=== PATIENT | male | born 1960 | race Caucasian/White ===

== ENCOUNTER 2017-05-01 20:03 | Emergency (ER) | payer OTHER ==
[2017-05-01 20:43] VITALS: BP 156/98
[2017-05-01] MEDS ORDERED: Al Hydrox/Mg Hydrox/Simet LIQ* 30 ML UDC PO ONE (21:49)
--- NOTE | 2017-05-01 22:13 | UC ---
Donis Weir Julia, scribed for Steven Soto MD on 05/01/17 at 2117 . Abdominal Pain Male HPI - HPI Summary HPI Summary: This patient is a 57 year old M presenting to [facility] with a chief complaint of constant gas and epigastric abdominal pain since 21:30 after shoveling snow. Patient reports elevated BP at home (195/100). Patient denies nausea and diaphoresis. The patient rates the pain 4/10 in severity currently, and a 7/10 initially. Symptoms aggravated by nothing. Symptoms alleviated by nothing. Pt has hx of HTN. He takes a baby ASA daily, and took additional ASA today, which usually bothers his stomach. - History of Current Complaint Chief Complaint: UCAbdominalPain Stated Complaint: ABDOMINAL GAS Time Seen by Provider: 05/01/17 21:03 Hx Obtained From: Patient Onset/Duration: Lasting Hours, Still Present Timing: Constant Severity Initially: Moderate Severity Currently: Mild Pain Intensity: 5 Pain Scale Used: 0-10 Numeric Location: Epigastric Character: Colicy Aggravating Factor(s): Nothing Alleviating Factor(s): Nothing Associated Signs And Symptoms: Positive: Other - elevated BP - Allergies/Home Medications Allergies/Adverse Reactions: Allergies Allergy/AdvReac Type Severity Reaction Status Date / Time No Known Allergies Allergy Verified 05/01/17 20:43 PMH/Surg Hx/FS Hx/Imm Hx Cardiovascular History: Hypertension - Surgical History Surgical History: None - Family History Known Family History: Positive: Cardiac Disease - father, Other - lung cancer - father - Social History Alcohol Use: Occasionally Substance Use Type: None Smoking Status (MU): Never Smoked Tobacco - Immunization History Most Recent Tetanus Shot: 2012 Review of Systems Skin: Negative - diaphoresis Cardiovascular: Other - elevated BP Gastrointestinal: Negative - nausea, Abdominal Pain - epigastric All Other Systems Reviewed And Are Negative: Yes Physical Exam Triage Information Reviewed: Yes Vital Signs: Initial Vital Signs Temp 97.3 F 05/01/17 20:39 Pulse 67 05/01/17 20:39 Resp 18 05/01/17 20:39 BP 156/98 05/01/17 20:39 Pulse Ox 99 05/01/17 20:39 Vital Signs Reviewed: Yes - Additional Comments General: well-appearing, no pain distress Skin: warm, color reflects adequate perfusion, dry Head: normal Eyes: EOMI, EDELMIRA ENT: normal Neck: supple, nontender Respiratory: CTA, breath sounds present Cardiovascular: RRR Abdomen: soft, Minimal tenderness is epigastrium Bowel: present Musculoskeletal: normal, strength/ROM intact Neurological: normal, sensory/motor intact, A&O x3 Psychological: affect/mood appropriate Diagnostics - EKG Cardiac Rate: NL - 64 BPM Cardiac Rhythm: Sinus: Normal Ectopy: None ST Segment: Non-Specific - minimal ST elevation in anterior leads, flipped T in lead III Abd Pain Male Course/Dx - Course Course Of Treatment: BP noted and advised to follow up with PCP. EKG HAS CONCAVE UP STs IN THE ANTERIOR LEADS WITH MINIMAL ST ELEVATION AND A FLIPPED T IN III. THE FLIPPED T WAS NOT THERE IN HIS 05/24/12 EKG AND THE STs IN THE 05/24/12 EKG WERE READ NORMAL. I DISCUSSED TODAY'S EKG FINDINGS WITH THE PATIENT AND MY CONCERN OF THE POSSIBILITY OF THE EPIGASTRIC PAIN BEING CAUSED BY HIS HEART. I RECOMMENDED TRANSPORT TO THE EMERGENCY DEPARTMENT BY AMBULANCE. THE PATIENT DECLINED AMBULANCE TRANSPORT. HE STATED HE WOULD DRIVE TO THE EMERGENCY DEPARTMENT. NO MORE ASA WAS GIVEN HERE THE PATIENT HAD TAKEN ASA IN [employer]. THE PATIENT REQUESTED SOMETHING FOR GI UPSET AND WAS GIVEN MAALOX. I DISCUSSED THE PATIENT WITH THE CHARGE NURSE IN THE ED TO FACILITATE THE PATIENT'S EPIGASTRIC PAIN AND CARDIAC EVALUATION UPON ARRIVAL TO THE ED. - Differential Dx/Clinical Impression Provider Diagnoses: EPIGASTRIC PAIN Discharge - Discharge Plan Condition: Stable Disposition: HOME Patient Education Materials: Epigastric Pain (ED) Referrals: Abilio Carrillo MD [Primary Care Provider] - Additional Instructions: GO DIRECTLY TO THE EMERGENCY DEPARTMENT FOR FURTHER EVALUATION OF YOUR UPPER ABDOMINAL PAIN THIS COULD BE YOUR HEART CAUSING YOUR PAIN. The documentation as recorded by the Donis ruiz Julia accurately reflects the service I personally performed and the decisions made by me, Steven Soto MD.
== END 2017-05-01 21:50 | disposition home or self-care (01) ==
LOC: UCEAST 20:03
DX: R10.13 Epigastric pain (principal); R61 Generalized hyperhidrosis; I10 Essential (primary) hypertension; Z79.82 Long term (current) use of aspirin
CPT/HCPCS: 93005; 99212; A9270-GY; G0463

== ENCOUNTER 2017-05-01 22:09 | Emergency (ER) | payer OTHER ==
--- NOTE | 2017-05-02 00:10 | UC ---
Abdominal Pain Male HPI - HPI Summary HPI Summary: wasworking out side this evening and had some "epigastric gas" pain waited an hour to see if it would go away, when pain failed to resolve he went to the urgent care-at urgent care pat states pain continued EKG was done that showed minimal st seg elevation in V1-V4 patient refused an ambulance and drove to [facility] Ed for a comprehensive assessment. Pain is currently pain free with out medicalintervention EKG is normal with out ST Seg changes - History of Current Complaint Chief Complaint: EDAbdPain Stated Complaint: ABD PAIN Time Seen by Provider: 05/02/17 00:15 Hx Obtained From: Patient Onset/Duration: Sudden Onset, Lasting Hours, Resolved Timing: Constant Severity Initially: Mild Severity Currently: None Pain Intensity: 0 Pain Scale Used: 0-10 Numeric Location: Epigastric Radiates: No Character: Other - full Aggravating Factor(s): Nothing Alleviating Factor(s): Spontaneous Resolution Associated Signs And Symptoms: Positive: Negative - Allergies/Home Medications Allergies/Adverse Reactions: Allergies Allergy/AdvReac Type Severity Reaction Status Date / Time No Known Allergies Allergy Verified 05/01/17 20:43 PMH/Surg Hx/FS Hx/Imm Hx Previously Healthy: Yes - itp - Surgical History Surgical History: None - Family History Known Family History: Positive: Other - father [place] in his 70'2 from lung cancer - Social History Occupation: Employed Full-time Lives: Alone Alcohol Use: Occasionally Substance Use Type: None Smoking Status (MU): Never Smoked Tobacco - Immunization History Most Recent Tetanus Shot: 2012 Review of Systems Constitutional: Negative Skin: Negative Eyes: Negative ENT: Negative Respiratory: Negative Cardiovascular: Negative Gastrointestinal: Negative Genitourinary: Negative Motor: Negative Neurovascular: Negative Musculoskeletal: Negative Neurological: Negative Psychological: Negative Is Patient Immunocompromised?: No All Other Systems Reviewed And Are Negative: Yes Physical Exam Triage Information Reviewed: Yes Appearance: Well-Appearing, No Pain Distress, Well-Nourished Vital Signs: Initial Vital Signs Temp 97.6 F 05/01/17 22:58 Pulse 87 05/01/17 22:58 Resp 18 05/01/17 22:58 BP 167/95 05/01/17 22:58 Pulse Ox 100 05/01/17 22:58 Vital Signs Reviewed: Yes Eye Exam: Normal Eyes: Positive: Conjunctiva Clear ENT Exam: Normal ENT: Positive: Normal ENT inspection, Hearing grossly normal, Pharynx normal, TMs normal, Uvula midline. Negative: Nasal congestion, Nasal drainage, Tonsillar swelling, Trismus, Muffled voice, Hoarse voice, Dental tenderness, Sinus tenderness Dental Exam: Normal Neck exam: Normal Neck: Positive: Supple, Nontender, No Lymphadenopathy Respiratory Exam: Normal Respiratory: Positive: Chest non-tender, Lungs clear, Normal breath sounds, No respiratory distress, No accessory muscle use Cardiovascular Exam: Normal Cardiovascular: Positive: RRR, No Murmur, Pulses Normal, Brisk Capillary Refill Abdominal Exam: Normal Abdomen Description: Positive: Nontender, No Organomegaly, Soft. Negative: CVA Tenderness (R), CVA Tenderness (L), Distended, Guarding, Hernia @, Hepatomegaly , McBurney's Point Tenderness, Peritoneal Signs, Pulsatile Mass Bowel Sounds: Positive: Present Musculoskeletal Exam: Normal Musculoskeletal: Positive: Strength Intact, ROM Intact, No Edema Neurological Exam: Normal Neurological: Positive: Alert, Muscle Tone Normal Psychological Exam: Normal Skin Exam: Normal Diagnostics - Radiology No standard instances Xray Interpretation: No Acute Changes Radiology Interpretation Completed By: ED Physician - EKG Cardiac Rate: NL Cardiac Rhythm: Sinus: Normal Ectopy: None ST Segment: Normal Abd Pain Male Course/Dx - Course Course Of Treatment: simethicone prn for gas pain, follow with Dr. Carrillo in the afternoon as planned previous for physical-return to ed for worsening symptoms or should symptoms fail to resolve or return - Differential Dx/Clinical Impression Provider Diagnoses: Acute abd pain, elevated liver enzymes, elevated blood pressure without dx of hypertension - Physician Notification/Consults Discussed Patient Care With: Vianey Alvarez Time Discussed With Above Provider: 01:45 Discharge - Discharge Plan Condition: Stable Disposition: HOME Patient Education Materials: Acute Abdominal Pain (ED), Gallstones (ED), Low Fat Diet (ED), Hypertension (ED) Referrals: Abilio Carrillo MD [Primary Care Provider] - 05/02/17 (as planned )
[2017-05-02 00:44] LABS: INR 1.07 (0.77-1.02)
[2017-05-02 00:48] LABS: ABS Basophils 0 10^3/ul (0-0.2); ABS Eosinophils 0 10^3/ul (0-0.6); ABS Lymphocytes 0.9 10^3/ul (1.0-4.8); ABS Monocytes 0.7 10^3/ul (0-0.8); ABS Neutrophils 9.1 10^3/ul (1.5-7.7); ABS Nucleated RBC 0 10^3/ul; Eosinophil % 0.4 % (0-6); Hematocrit 46 % (42-52); Hemoglobin 15.8 g/dl (14.0-18.0); Lymphocyte % 8.7 % (25-47); Mean Corpuscular HGB Conc 35 g/dl (31-36); Mean Corpuscular Hemoglobin 30 pg (27-31); Mean Corpuscular Volume 86 fL (80-94); Nucleated Red Blood Cells % 0.1; Red Cell Distribution Width 13 % (10.5-15); White Blood Count 10.8 10^3/ul (3.5-10.8)
[2017-05-02 00:58] LABS: Urine Appearance Clear; Urine Blood Negative (Negative); Urine Color Straw; Urine Ketones Negative (Negative); Urine Protein Negative (Negative); Urine Specific Gravity 1.003 (1.010-1.030); Urine Urobilinogen Negative (Negative)
[2017-05-02 01:11] LABS: Mean Platelet Volume 12 um3 (7.4-10.4); Platelet Count 52 10^3/ul (150-450)
[2017-05-02] MEDS ORDERED: Simethicone TAB* 80 MG TAB.CHEW PO ONE (01:26)
[2017-05-02 01:29] VITALS: BP 149/82
--- NOTE | 2017-05-02 07:37 | RAD ---
INDICATION: Chest pain COMPARISON: None TECHNIQUE: An AP portable view obtained at 0049 hours is submitted. FINDINGS: Bones/Soft Tissues: There are no acute bony findings. Cardiomediastinal: The cardiomediastinal silhouette is normal. Lungs: There are no infiltrates. Pleura: There are no pleural effusions. Other: None IMPRESSION: NO ACTIVE DISEASE.
== END 2017-05-02 02:02 | disposition home or self-care (01) ==
LOC: ED 22:09
DX: R10.13 Epigastric pain (principal); R94.5 Abnormal results of liver function studies; R03.0 Elevated blood-pressure reading, without diagnosis of hypertension
CPT/HCPCS: 36415; 71045; 80053; 81003; 82550; 82553; 83605; 83690; 83735; 83874; 84443; 84484; 85025; 85060; 85610; 85730; 86140; 93005; 99282; A9270-GY